=== PATIENT | male | born 1995 | race African-American/Black ===

== ENCOUNTER 2017-05-16 15:44 | Emergency (ER) | payer BC ==
[~2017-05-16] VITALS: Ht 177.8 cm; Wt 61.2 kg
[~2017-05-16 15:44] MED LIST: AMOXICILLIN500 MG ORAL; IBUPROFEN600 MG ORAL; ZOFRAN ODT4 MG ORAL
--- NOTE | 2017-05-16 17:10 | Emergency Room Report ---
History of Present Illness General Chief Complaint: Skin Rash/Abscess Source: Patient Present Illness HPI 21-year-old male presents to the emergency department complaining of multiple swelling area is that high of significant itching on his upper extremities and lower extremities x3 days. Patient denies pain however she states two of the lesions have become tender. Patient denies fevers, chills he reports increase in erythema and continued swelling. Patient states that he has not taken any medications for his symptoms. Patient denies recent travel or other persons with similar symptoms. Denies lesions/rashes elsewhere on the body. Denies new medications or body washes or creams. Denies swelling of the lips, tongue , throat or airway. Denies wheezing, or shortness of breath. Denies recent travel , recent illness or ill contacts. denies blisters, oral lesions, or sloughing of the skin. Denies CP, Palpitations, LOC, AMS, dizziness, Changes in Vision, Sensation, paresthesias, or a sudden severe headache. Allergies: Coded Allergies: No Known Allergies (Unverified , 12/17/15) Patient History Past Medical History: see triage record Past Surgical History: none Pertinent Family History: none Immunizations: UTD Reviewed Nursing Documentation: PMH: Agreed, PSxH: Agreed Review of Systems All Other Systems: negative except mentioned in HPI Physical Exam Vital Signs Date Time Temp Pulse Resp B/P (MAP) Pulse Ox O2 Delivery O2 Flow Rate FiO2 05/16/17 16:13 98.2 73 18 125/88 97 Room Air Sp02 EP Interpretation: reviewed, normal General Appearance: no apparent distress, alert, GCS 15, non-toxic Head: normocephalic, atraumatic Eyes: bilateral eye normal inspection, bilateral eye PERRL ENT: hearing grossly normal, normal pharynx, no angioedema, normal voice, uvula midline, other - no stridor, no swelling of the lips or tongue Neck: full range of motion, supple/symm/no masses Respiratory: lungs clear, normal breath sounds, no respiratory distress, no wheezing, speaking full sentences Cardiovascular #1: regular rate, rhythm, normal capillary refill Musculoskeletal: back normal, gait/station normal, normal range of motion Neurologic: alert, oriented x3, responsive, motor strength/tone normal, sensory intact, speech normal Skin: normal color, warm/dry, well hydrated, rash - multiple swollen insect bites with induration to UE, LE, ankles bilaterally. lesions all approx 1cm each of swelling, no blisters, no fluctuance. several are scabed from excoriation with area of surrounding erythema that is also increased in temperature to palpation. no vesicles. Lymphatic: no adenopathy Medical Decision Making PA Attestation Dr. Reyes is my supervising Physician whom patient management has been discussed with. Diagnostic Impression: Primary Impression: Insect bites of multiple sites, infected ER Course Pt. presents to the ED c/o Itching, swelling, and erythema of Multiple sites upper extremities, lower extremities over the course of 3 days. Patient denies wheezing, swelling of the lips or tongue, difficulty breathing. Patient denies fevers or chills. Ddx considered but are not limited to cellulitis, scabies, insect bites, tic bites, spider bites, contact dermatitis, Drug reaction, allergic reaction, fungal infection, lice. Vital signs: are WNL, pt. is afebrile H&PE are most consistent with insect bites of multiple sites with secondary infection. ORDERS: none required at this time, the diagnosis is clinical ED INTERVENTIONS: -Hydrocortisone Cream -Tylenol PO DISCHARGE: At this time pt. is stable for d/c to home. Will provide printed patient care instructions, and any necessary prescriptions. Care plan and follow up instructions have been discussed with the patient prior to discharge. Last Vital Signs Date Time Temp Pulse Resp B/P (MAP) Pulse Ox O2 Delivery O2 Flow Rate FiO2 05/16/17 16:13 98.2 73 18 125/88 97 Room Air Disposition: HOME, SELF-CARE Condition: Serious Scripts Cephalexin* (KEFLEX*) 500 Mg Capsule 500 MG ORAL EVERY 12 HOURS for 7 Days, #14 CAP 0 Refills Prov: Kandace Pugh P.Lesley 05/16/17 Hydrocortisone (Hydrocortisone Cream 2.5%) Y Cream.appl 1 APPLIC TP BID, #28.3 GM Prov: Kandace Pugh 05/16/17 Hydroxyzine HCl (Hydroxyzine HCl) 25 Mg Tablet 25 MG ORAL FOUR TIMES A DAY, #30 TAB Prov: Kandace Pugh 05/16/17 Patient Instructions: Insect Bite Additional Instructions: Take medications as directed. Follow up with a Primary Care Provider in 3-5 days, even if your symptoms have resolved. --Please review list of primary care clinics, if you do not already have a primary care provider Return sooner to ED if new symptoms occur, or current symptoms become worse. Do not drink alcohol, drive, or operate heavy machinery while taking Atarax/ Hydroxyzine as this may cause drowsiness. - Please note that this Emergency Department Report was dictated using Newport Mediaentry level paralegal technology software, occasionally this can lead to erroneous entry secondary to interpretation by the dictation equipment. Kandace Pugh May 16, 2017 17:10
[2017-05-16] MEDS ORDERED: HYDROCORTISONE30 G2 TP (17:11)
[2017-05-16] MEDS ORDERED: ATARAX25 MG ORAL (17:11)
[2017-05-16] MEDS ORDERED: CEPHALEXIN500 MG ORAL (17:11)
[2017-05-16] MEDS ORDERED: Hydrocortisone 2.5% Oint 30gm TOPIC PRN (17:15)
[2017-05-16 17:35] VITALS: BP 140/89
== END 2017-05-16 17:35 | disposition home or self-care (01) ==
LOC: EMR 17:10
DX: S90.562A Insect bite (nonvenomous), left ankle, initial encounter (principal); S90.561A Insect bite (nonvenomous), right ankle, initial encounter; S40.862A Insect bite (nonvenomous) of left upper arm, initial encounter; S40.861A Insect bite (nonvenomous) of right upper arm, initial encounter; L08.9 Local infection of the skin and subcutaneous tissue, unspecified; W57.XXXA Bitten or stung by nonvenomous insect and other nonvenomous arthropods, initial encounter; Y92.9 Unspecified place or not applicable
CPT/HCPCS: 99284

== ENCOUNTER 2017-07-12 13:15 | Emergency (ER) | payer BC ==
[~2017-07-12] VITALS: Ht 175.3 cm; Wt 65.8 kg
[~2017-07-12 13:15] MED LIST changes: +ATARAX25 MG ORAL; +CEPHALEXIN500 MG ORAL; +HYDROCORTISONE30 G2 TP
[2017-07-12] MEDS ORDERED: HYDROcodone/Acetamin 10/325 tab ORAL ONE (13:45)
--- NOTE | 2017-07-12 14:43 | Emergency Room Report ---
History of Present Illness General Chief Complaint: Lower Extremity Injury Present Illness HPI Pt. states that he was practicing a play in which one point he is pushed and shoved to the ground. Patient states that after performing numbness he landed on his knee and he had acute onset localized pain that was also exacerbated with weight-bearing, walking and movement. he denies previous injury to the extremity. He denies open wounds or bleeding. Denies numbness tingling or loss of sensation or gross motor movements of the extremities, incontinence of bowel or bladder. Denies CP, Palpitations, LOC, AMS, dizziness, Changes in Vision, Sensation, paresthesias, or a sudden severe headache. (Kandace Pugh P.A.) Allergies: Coded Allergies: No Known Allergies (Unverified , 12/17/15) Patient History Past Medical History: see triage record Past Surgical History: none Pertinent Family History: none Reviewed Nursing Documentation: PMH: Agreed, PSxH: Agreed (Kandace Pugh.Lesley) Review of Systems All Other Systems: negative except mentioned in HPI (Kandace Pugh.Lesley) Physical Exam Vital Signs Date Time Temp Pulse Resp B/P (MAP) Pulse Ox O2 Delivery O2 Flow Rate FiO2 07/12/17 13:25 97.9 72 20 146/83 99 Room Air Sp02 EP Interpretation: reviewed, normal General Appearance: no apparent distress, alert, GCS 15, non-toxic Head: normocephalic, atraumatic ENT: hearing grossly normal, normal voice Neck: full range of motion Respiratory: lungs clear, normal breath sounds, speaking full sentences Cardiovascular #1: regular rate, rhythm, normal capillary refill Cardiovascular #2: 2+ dorsalis pedis (L) - post. tibialis Musculoskeletal: back normal, gait/station normal, normal range of motion, tender - Left posterior lateral Knee TTP, no bruising, mild swelling, no increased laxity. no obvious dislocation. Neurologic: alert, oriented x3, responsive, motor strength/tone normal, sensory intact, speech normal, grossly normal Psychiatric: judgement/insight normal Skin: normal color, no rash, warm/dry, well hydrated Lymphatic: no adenopathy (Kandace Pugh.Lesley) Medical Decision Making PA Attestation Dr. Rooney is my supervising Physician whom patient management has been discussed with. (PughKandace ambrose) Diagnostic Impression: Primary Impression: Strain of knee and leg, left Qualified Codes: S86.912A - Strain of unspecified muscle(s) and tendon(s) at lower leg level, left leg, initial encounter Additional Impression: Contusion of knee, left Qualified Codes: S80.02XA - Contusion of left knee, initial encounter ER Course Pt. presents to the ED c/o Left knee Pain. 8/10 in severity. Ddx considered but are not limited to Fracture, dislocation, contusion, Sprain/ Strain/Spasm, Epidural abscess, Neoplastic mets. Vital signs: are WNL, pt. is afebrile H&PE are most consistent with musculoskeletal injury will perform imaging to r/ o fractures/ effusion . - Left posterior lateral Knee TTP, no bruising, mild swelling, no increased laxity. no obvious dislocation. ORDERS: - X-ray Left Knee 3 views - negative for fx, Dislocation, or significant soft tissue injury, per preliminary read in ED, and signed by MONICA Pugh , my supervising physician has reviewed, and agrees with my interpretation. ED INTERVENTIONS: -Rodrigo wrap applied by commercial maintenance technician. Pt. remains neurovascularly intact. --Patient is provided with crutches and instructed on their use DISCHARGE: At this time pt. is stable for d/c to home. Will provide printed patient care instructions, and any necessary prescriptions. Care plan and follow up instructions have been discussed with the patient prior to discharge. (Kandace Pugh) Other X-Ray Diagnostic Results Other X-Ray Diagnostic Results : X-Ray ordered: Left KNee # of Views/Limited Vs Complete: 3 View Indication: Pain EP Interpretation: Yes PA Xray: Interpretation reviewed, by supervising MD, and agrees with findings. Interpretation: no dislocation, no soft tissue swelling, no fractures Impression: No acute disease Electronically Signed by: Kandace Pugh PA-C (Kandace Pugh) Other X-Ray Diagnostic Results : PA Xray: Interpretation reviewed, by supervising MD, and agrees with findings. - Scribe documentation reviewed by me and is accurate, Gilbert Rooney MD. (Gilbert Rooney M.D.) Last Vital Signs Date Time Temp Pulse Resp B/P (MAP) Pulse Ox O2 Delivery O2 Flow Rate FiO2 07/12/17 14:11 97.9 07/12/17 13:25 72 20 146/83 99 Room Air (Kandace Pugh) Disposition: HOME, SELF-CARE Condition: Stable Scripts Ibuprofen* (MOTRIN*) 600 Mg Tablet 600 MG ORAL THREE TIMES A DAY, #30 TAB 0 Refills Prov: Kandace Pugh 07/12/17 Patient Instructions: Contusion, [id number], Knee Sprain, [id number] Additional Instructions: Take medications as directed. Follow up with a Primary Care Provider in 3-5 days, even if your symptoms have resolved. --Please review list of primary care clinics, if you do not already have a primary care provider Return sooner to ED if new symptoms occur, or current symptoms become worse. - Please note that this Emergency Department Report was dictated using Shiny Mediadistrict manager major accounts sales technology software, occasionally this can lead to erroneous entry secondary to interpretation by the dictation equipment. Kandace Pugh Jul 12, 2017 14:43 Gilbert Rooney M.D. Jul 13, 2017 20:02
[2017-07-12] MEDS ORDERED: IBUPROFEN600 MG ORAL (14:44)
[2017-07-12 15:05] VITALS: BP 141/80
--- NOTE | 2017-07-12 16:14 | Diagnostic Imaging Report ---
Indications: The patient Technique: Three views of the left knee Comparison: None Findings: No acute fractures. No dislocations. Joint spaces are preserved. No radiopaque foreign body. Normal mineralization. Impression: No acute process
== END 2017-07-12 15:10 | disposition home or self-care (01) ==
LOC: EMR 13:20
DX: S86.812A Strain of other muscle(s) and tendon(s) at lower leg level, left leg, initial encounter (principal); S80.02XA Contusion of left knee, initial encounter; W19.XXXA Unspecified fall, initial encounter; Y93.41 Activity, dancing; Y92.9 Unspecified place or not applicable
CPT/HCPCS: 99283

== ENCOUNTER 2018-03-09 19:07 | Emergency (ER) | payer SELFPAY ==
[~2018-03-09] VITALS: Ht 177.8 cm; Wt 63.5 kg
--- NOTE | 2018-03-09 19:34 | Emergency Room Report ---
History of Present Illness General Chief Complaint: General Complaint Source: Patient Present Illness Allergies: Coded Allergies: No Known Allergies (Unverified , 03/09/18) Patient History Past Medical History: see triage record Past Surgical History: none Pertinent Family History: none Reviewed Nursing Documentation: PMH: Agreed; PSxH: Agreed Nursing Documentation-PMH Past Medical History: No History, Except For Physical Exam Vital Signs Date Time Temp Pulse Resp B/P (MAP) Pulse Ox O2 Delivery O2 Flow Rate FiO2 03/09/18 19:09 101.0 100 16 127/81 96 Room Air 100.9 Medical Decision Making PA Attestation Dr. navarro is my supervising Physician whom patient management has been discussed with. Diagnostic Impression: Primary Impression: Pharyngitis Qualified Codes: J02.0 - Streptococcal pharyngitis Additional Impression: Headache Qualified Codes: R51 - Headache ER Course Pt. presents to the ED c/o : sore throat, tonsillar swelling, and nasal congestion x 2 days Ddx considered but are not limited to: pharyngitis, strep, [employer]UMBER,Meningitis, migraine, viral syndrome just to name a few. Vital signs: Pt. is Febrile. H&PE are most consistent with: febrile illness with some meningeal signs in addition to visible source in the throat. ORDERS: -CBC - CMP - lactic acid -Blood cultures x 2 - CXR -CT head no contrast ED INTERVENTIONS: -Reglan IM - Vancomycin IV -Dexamethasone IV - Benadryl IV 50mg total ( pt. began having hives at the completion of vancomycin) DISCHARGE: At this time pt. is stable for d/c to home. Will provide printed patient care instructions, and any necessary prescriptions. Care plan and follow up instructions have been discussed with the patient prior to discharge. Last Vital Signs Date Time Temp Pulse Resp B/P (MAP) Pulse Ox O2 Delivery O2 Flow Rate FiO2 03/09/18 19:09 101.0 100 16 127/81 96 Room Air 100.9 Disposition: HOME, SELF-CARE Condition: Stable Departure Forms: Return to Work Return to Work Date: Mar 13, 2018 Work Restrictions: None Return to Full Activity: Mar 13, 2018 Patient Instructions: Migraine Headache, [id number], Pharyngitis, Easy-to- Read Additional Instructions: !*!*!*!*!*! Please note and advise your PCP: You are allergic to the antibiotic : VANCOMYCIN !*!*!*!*! Take medications as directed. Follow up with a Primary Care Provider in 3 days, even if your symptoms have resolved. Return sooner to ED if new symptoms occur, or current symptoms become worse. Such as discussed symptoms of allergic reaction, worsening GARCIA, neck stiffness, fevers or any changes from current condition upon your discharge. Do not drink alcohol, drive, or operate heavy machinery while taking Benadryl as this may cause drowsiness. - Please note that this Emergency Department Report was dictated using Just[employer]profiling machine set up operator tool technology software, occasionally this can lead to erroneous entry secondary to interpretation by the dictation equipment. Kandace Pugh Mar 09, 2018 19:34
[2018-03-09] MEDS ORDERED: Metoclopramide 10mg/2ml Inj IM ONE ×2 (19:45→19:53)
[2018-03-09] MEDS ORDERED: Vancomycin 1 GM in NS 275 ML IVPB ONE (20:15)
[2018-03-09] MEDS ORDERED: DEXAMETHASONE IV ONE (20:15)
[2018-03-09] MEDS ORDERED: NS IV ONE (20:15)
--- NOTE | 2018-03-09 20:58 | Diagnostic Imaging Report ---
EXAM: XR Chest, 1 View CLINICAL HISTORY: PAIN TECHNIQUE: Frontal view of the chest. COMPARISON: 12/17/15. The prior report is not available for review. FINDINGS: Lungs: The lungs are grossly clear. Pleural space: The costophrenic angles are sharp. No plain film evidence for pneumothorax. Heart: The cardiomediastinal silhouette is unremarkable. Mediastinum: See above. Bones/joints: Unremarkable. IMPRESSION: Unremarkable frontal view of the chest.
[2018-03-09 21:08] LABS: BASOPHILS % (AUTO) 1.7 % (0.0-2.0); EOSINOPHILS % (AUTO) 0.6 % (0.0-3.0); HEMATOCRIT 41.1 % (42.0-52.0); LYMPHOCYTES % (AUTO) 38.8 % (20.0-45.0); MEAN CORPUSCULAR VOLUME 90 FL (80-99); MONOCYTES % (AUTO) 9.4 % (1.0-10.0); NEUTROPHILS % (AUTO) 49.5 % (45.0-75.0); PLATELET COUNT 266 K/UL (150-450); RED BLOOD COUNT 4.57 M/UL (4.70-6.10); RED CELL DISTRIBUTION WIDTH 11.3 % (11.6-14.8); WHITE BLOOD COUNT 7.2 K/UL (4.8-10.8)
--- NOTE | 2018-03-09 21:14 | Diagnostic Imaging Report ---
EXAM: CT Head Without Intravenous Contrast CLINICAL HISTORY: Headache TECHNIQUE: Axial computed tomography images of the head/brain without intravenous contrast. CTDI is 0.15, 0.15, 70.38 mGy and DLP is 1505 mGy-cm. One or more of the following dose reduction techniques were used: automated exposure control, adjustment of the mA and/or kV according to patient size, use of iterative reconstruction technique. COMPARISON: No relevant prior studies available. FINDINGS: Brain: Unremarkable. No hemorrhage. No significant white matter disease. No edema. Ventricles: Unremarkable. No ventriculomegaly. Bones/joints: Unremarkable. No acute fracture. Soft tissues: Unremarkable. Sinuses: Unremarkable as visualized. No acute sinusitis. Mastoid air cells: Unremarkable as visualized. No mastoid effusion. IMPRESSION: No CT evidence for acute intracranial abnormality.
[2018-03-09 21:29] LABS: ANION GAP 5 mmol/L (5-15); BLOOD UREA NITROGEN 11 mg/dL (7-18); CALCIUM 8.9 MG/DL (8.5-10.1); CARBON DIOXIDE 30 MMOL/L (21-32); CHLORIDE 101 MMOL/L (98-107); CREATININE 1.3 MG/DL (0.55-1.30); POTASSIUM 3.7 MMOL/L (3.5-5.1); SODIUM 136 MMOL/L (136-145)
[2018-03-09] MEDS ORDERED: DiphenhydrAMINE 50mg/ml Inj IVP ONE ×2 (21:30)
[2018-03-09 21:33] LABS: ALANINE AMINOTRANSFERASE 52 U/L (12-78); ALBUMIN/GLOBULIN RATIO 0.7 (1.0-2.7); ALKALINE PHOSPHATASE 73 U/L (46-116); ASPARTATE AMINO TRANSFERASE 30 U/L (15-37); BILIRUBIN,TOTAL 0.7 MG/DL (0.2-1.0)
[2018-03-09] MEDS ORDERED: Ketorolac 30mg Inj IV ONE (21:45)
[2018-03-09] MEDS ORDERED: IBUPROFEN600 MG ORAL (22:30)
[2018-03-09] MEDS ORDERED: AUGMENTIN 875-1 EAC1 ORAL (22:30)
[2018-03-09] MEDS ORDERED: BENADRYL ALLERG25 M1 PO (22:30)
[2018-03-09 22:50] VITALS: BP 121/76
== END 2018-03-09 22:50 | disposition home or self-care (01) ==
LOC: EMR 22:12
DX: J02.0 Streptococcal pharyngitis (principal); R51 Headache; R50.9 Fever, unspecified
CPT/HCPCS: 36415; 70450; 71045; 80053; 83605; 85025; 96365; 96367; 96372; 96375; 99284; J1200; J1885; J2765; J3370; J7050

== ENCOUNTER 2018-09-03 16:41 | Emergency (ER) | payer SELFPAY ==
[~2018-09-03] VITALS: Ht 172.7 cm; Wt 65.3 kg
[~2018-09-03 16:41] MED LIST changes: +AUGMENTIN 875-1 EAC1 ORAL; +BENADRYL ALLERG25 M1 PO
[2018-09-03] MEDS ORDERED: Ketorolac 30mg Inj IM ONE (17:15)
--- NOTE | 2018-09-03 17:21 | Emergency Room Report ---
History of Present Illness General Chief Complaint: Headache Source: Patient Present Illness [facility] 22-year-old male patient presents the ER complaining headache times 1 day and jaw pain and cough times 1 week. Reports cough with sputum. Denies hemoptysis. Denies chest pain or shortness of breath. Denies recent travel outside the country. Denies history of asthma or heart disease. Also reports headache during this time. Reports headache over sinuses. Denies runny nose however reports congestion. Denies ear pain. Denies tooth pain. Denies sore throat. Reports history of migraines, states that this headache is worse. Reports headache was sudden onset, states worse headache of life. Denies fever. Denies neck pain. Denies photophobia or phonophobia. Denies other aggravating or relieving factors. Denies alcohol or drug use. Allergies: Coded Allergies: No Known Allergies (Unverified , 03/09/18) Patient History Past Medical History: see triage record Reviewed Nursing Documentation: PMH: Agreed; PSxH: Agreed Review of Systems All Other Systems: negative except mentioned in HPI Physical Exam Vital Signs Date Time Temp Pulse Resp B/P (MAP) Pulse Ox O2 Delivery O2 Flow Rate FiO2 09/03/18 16:46 98.6 105 24 135/78 100 Room Air Sp02 EP Interpretation: reviewed, normal General Appearance: well appearing, no apparent distress, alert, GCS 15, non- toxic Head: normocephalic, atraumatic, other - Tenderness palpation over left maxillary sinus Eyes: bilateral eye normal inspection, bilateral eye PERRL ENT: hearing grossly normal, normal pharynx, no angioedema, normal voice, TMs + canals normal, uvula midline, moist mucus membranes, other - Tenderness to palpation over left posterior wisdom tooth Neck: full range of motion, no meningismus, no bony tend Respiratory: lungs clear, normal breath sounds, no rhonchi, no respiratory distress, no accessory muscle use, no wheezing, speaking full sentences Cardiovascular #1: regular rate, rhythm, no edema Musculoskeletal: back normal, digits/nails normal, gait/station normal, normal range of motion, non-tender Neurologic: alert, oriented x3, responsive, tomahawk weapon system operator III-XII nml as tested, motor strength/tone normal, SLR negative, sensory intact, cerebellar normal, normal gait, speech normal Psychiatric: mood/affect normal Skin: no rash Medical Decision Making PA Attestation Dr. Cox is my supervising Physician whom patient management has been discussed with. Diagnostic Impression: Primary Impression: Sinusitis Additional Impressions: Sinus headache Tooth pain ER Course Pt presents to ED c/o headache. DDX considered but are not limited to migraine, cluster GARCIA, tension GARCIA, meningitis, ICH, meningitis, HTN, influenza, sinusitis, temporal arteritis, SAH , dental infection, wisdom tooth impaction, trigeminal neuralgia, otitis media, otitis externa, mastoiditis. Negative Kernig, negative Brudzinski, low suspicion for meningitis. VITAL SIGNS are WNL, patient is afebrile ER COURSE Provided patient with Reglan and Toradol in the ER. Treatment for sinusitis will cover for possible tooth infection. CT head No intracranial hemorrhage or mass effect. CT facial bones Paranasal sinusitis Discuss results with the patient. Provided patient with copy of results. Instructed patient to followup with PCP and discuss results of report with patient, discuss need for further treatment and referral. Follow-up with ENT specialist. Left lower wisdom tooth tender to palpation, follow-up with dentist. Nontoxic appearing, speaking full sentences, no active draining, mild edema, no trismus or vision changes. No signs of abscess, no fluctuance, erythema or edema. Patient reports pain improved. Patient eating food in the ER. Patient is AOx3, neurologically intact, nontoxic appearing, and ambulatory. ER precautions given. Followup with PCP and discuss referral to neurology. DISCHARGE: At this time pt is stable for d/c to home. Patient is resting comfortably, in no acute distress, nontoxic appearing, talking and smiling. Will provide with patient care instructions and any necessary prescriptions. Patient to take medication as instructed. Care plan and follow-up instructions provided. Patient questions asked and answered. Patient instructed to follow-up with primary care provider in the next 3 days and discuss further referral with PCP to neurologist. ER precautions given. Patient instructed to return to ER immediately for any new or worsening of symptoms including but not limited to fever, neck stiffness , vision changes, and neurological symptoms. - Please note that this Emergency Department Report was dictated using Par[employer] Genomicsfinishing manager technology software, occasionally this can lead to erroneous entry secondary to interpretation by the dictation equipment. CT/MRI/US Diagnostic Results CT/MRI/US Diagnostic Results #1: Imaging Test Ordered: CT head Impression No intracranial hemorrhage or mass effect Ventricles are within limits and midline CT/MRI/US Diagnostic Results #2: Imaging Test Ordered: CT facial bones Impression Paranasal sinusitis with near-complete opacification left maxillary sinus, partial opacification left frontal sinus, small fluid level and frothy material right maxillary sinus and small amount of frothy material and mucoperiosteal thickening right sphenoid sinus Mastoids are clear Orbits appear within limits Last Vital Signs Date Time Temp Pulse Resp B/P (MAP) Pulse Ox O2 Delivery O2 Flow Rate FiO2 09/03/18 16:46 98.6 105 24 135/78 100 Room Air Status: improved Disposition: HOME, SELF-CARE Condition: Stable Scripts Fluticasone Propionate* (FLUTICASONE PROPIONATE*) 16 Gm [place].susp 2 SPRAY NASAL DAILY, #16 GM Prov: Mark Duran 09/03/18 Loratadine/Pseudoephedrine (CLARITIN-D 12 HOUR TABLET) 1 Each Tab.er.12h 1 TAB ORAL EVERY 12 HOURS, #24 TAB Prov: Mark Duran 09/03/18 Acetaminophen* (TYLENOL EXTRA STRENGTH*) 500 Mg Tablet 500 MG ORAL Q8H PRN for Prn Headache/Temp > 101, #30 TAB 0 Refills Prov: Mark Duran 09/03/18 Amoxicillin/Potassium Clav 875-125* (AUGMENTIN 875-125 TABLET*) 1 Each Tablet 1 TAB ORAL TWICE A DAY for 7 Days, #14 TAB Prov: Mark Duran 09/03/18 Patient Instructions: Sinus Headache, Sinus Headache, [id number], Sinusitis, Adult, [id number] Additional Instructions: Followup with primary care provider in 3 -5 days. Discussed referral to ENT specialist. Discussed referral to dentist. Take medications as directed. Do not use nasal spray longer than 3 days. Take Tylenol for pain. Patient questions asked and answered. ER precautions given, patient instructed to return to ER immediately for any new or worsening of symptoms. Mark Duran Sep 03, 2018 17:21
--- NOTE | 2018-09-03 17:23 | NUR ---
ED Nurse Note: pt to ct scan after meds given. pt with headache not relieved with dim lights and rest. pt with nausea, but able to toelrate po meds. a/ox3
--- NOTE | 2018-09-03 17:35 | NUR ---
ED Nurse Note: pt returned from ct scan
--- NOTE | 2018-09-03 18:09 | NUR ---
ED Nurse Note: pt states his nausea is resolved and headache has decreased. po snacks requested by pt and given. pt tolerates well.
[2018-09-03 18:40] VITALS: BP 118/80
--- NOTE | 2018-09-03 18:44 | NUR ---
ED Nurse Note:pt given dc aci and script made aware of plan to f/u with ENT specialist. pt agrees to plan remains a/ox3 upon dc home
[2018-09-03 18:45] VITALS: BP 118/80
[2018-09-03] MEDS ORDERED: AUGMENTIN 875-1 EAC1 ORAL (18:47)
[2018-09-03] MEDS ORDERED: CLARITIN-D 121 EAC1 ORAL (18:47)
[2018-09-03] MEDS ORDERED: TYLENOL EXTRA500 MG ORAL (18:47)
[2018-09-03] MEDS ORDERED: FLUTICASONE PRO16 G1 NASAL (18:47)
--- NOTE | 2018-09-04 09:09 | Diagnostic Imaging Report ---
Indication: Headache times one day with jaw pain Technique: Continuous helical CT scanning of the head was performed without intravenous contrast material. Axial and coronal 5 mm sections were generated. Radiation dose was minimized using automated exposure control Dose: Total Dose Length Product - DLP 1980.[address] Dose Index - CTDIvol(s) 70.38,28.19 mGy. Comparison: none Findings: The ventricular system is normal in size and configuration. There is no shift of midline structures. No abnormal extra-axial fluid collections are noted. There is no evidence of intracerebral bleeding. No other abnormal high or low density areas are noted within the brain. Oliver-white differentiation is normal. The calvarium is intact. There is fairly extensive sinus disease noted. The mastoids are clear. Impression: Negative for acute intracranial bleed or mass effect Sinus disease This agrees with the preliminary interpretation provided overnight by [facility] teleradiology service. The CT scanner at [facility] is accredited by the [employer] and the scans are performed using protocols designed to limit radiation exposure to as low as reasonably achievable to attain images of sufficient resolution adequate for diagnostic evaluation.
--- NOTE | 2018-09-04 09:09 | Diagnostic Imaging Report ---
Indications: Headache times one day, jaw pain, cough x1 week Technique: Spiral images obtained through the facial bones. No IV contrast utilized. Multiplanar reconstructions were generated.Total dose length product 1980.11 mGycm. CTDIvol(s) 70.38,28.19 mGy. Dose reduction achieved using automated exposure control Comparison: none Findings: No acute fractures. There is opacification of the left maxillary sinus and partially of the left frontal sinus. Mucosal disease is also seen in the and ethmoid sinuses and right maxillary sinus. The nasal septum is midline. The right maxillary ostium is patent. The left maxillary ostium is occluded. The dentition is intact. Mastoids are clear. Impression: Sinus disease as described No acute bony trauma This agrees with the preliminary interpretation provided overnight by [facility]erad[facility]. The CT scanner at [facility] is accredited by the [employer] and the scans are performed using protocols designed to limit radiation exposure to as low as reasonably achievable to attain images of sufficient resolution adequate for diagnostic evaluation.
--- NOTE | 2018-09-04 10:15 | Diagnostic Imaging Report ---
Indication: Chest pain Technique: One view of the chest Comparison: 03/09/2018 Findings: Lungs and pleural spaces are clear. Heart size is normal. No significant interim change Impression: No acute process
== END 2018-09-03 18:45 | disposition home or self-care (01) ==
LOC: EMR 17:45
DX: R51 Headache (principal); K08.89 Other specified disorders of teeth and supporting structures
CPT/HCPCS: 70450; 70486; 71045; 96372; 99284; J1885